=== PATIENT | male | born 1945 | race Caucasian/White ===

== ENCOUNTER → 2016-09-06 | Outpatient (CLI) | payer OTHER ==
[~2016-09-06] MED LIST: ASPIRIN81 M1 PO; BLOOD PRESSURE MED; CEPHALEXIN500 M1 PO; FISH OIL 1,2001 CAP PO; FISH OIL 1,2001 EACH PO; LOSARTAN-HCTZ1 EACH PO; OMEPRAZOLE20 M2 PO; SIMVASTATIN20 MG PO; STOMACH MEDICATION; UROXATRAL10 MG PO; WAL-ZYR10 MG PO
--- NOTE | ~2016-09-06 | CR63 ---
[facility] A Service of [facility] & [facility] RADIOLOGY TEXT RESULTS PATIENT: KARIN VIERA JR LOCATION: [facility] : 43 UNIT #: [id number] AGE: [address]: Bettie Prasad MD SEX: M ORDER DR: [id number] [facility] [address]. [place], [place] [address] [id number] O MR#: [id number] Acc #: [id number] NAME: KARIN VIERA : 1945 SEX: M STUDY DATE/TIME: 09/06/2016 17:57 UNIT: [facility] ROOM: STUDY DESCRIPTION: CR Chest 2 View Attending Physician: Bettie Prasad M.D. Ordering Physician: Bettie Prasad M.D. Primary Care Physician: Bettie Prasad M.D. MEDICAL IMAGING REPORT This report is preliminary unless electronic signature is present EXAM Chest radiograph INDICATION Cough, shortness of breath for 1 week. Patient has a history of emphysema. FINDINGS Comparison is made to a prior exam from August 17, 2013. Heart size is within normal limits. I do think the patient has some patchy infiltrates, particularly throughout the right lung. There does appear to be some mild stable scarring at the left lung base. No pneumothorax is identified. Trace right pleural effusion is not excluded. IMPRESSION Background emphysematous changes with potentially some patchy infiltrates seen particularly throughout the right lung. Pneumonia is not excluded given history. Short-term followup exam to document resolution or stability is suggested. Trace right pleural effusion is also not excluded. Dictated by... Clair Brady M.D. THIS IS AN ELECTRONICALLY VERIFIED REPORT Clair Brady M.D. at 09/07/2016 11:00 AM RIAN/tahir TD: 09/07/2016 08:32 JOB #: [id number] MEDICAL IMAGING REPORT Page 1 of 1 COPY
== END | disposition home or self-care (01) ==
LOC: CRAD 17:44
DX: R05 Cough (principal); J00 Acute nasopharyngitis [common cold]; R91.8 Other nonspecific abnormal finding of lung field
CPT/HCPCS: 71020

== ENCOUNTER → 2016-09-21 | Outpatient (CLI) | payer OTHER ==
--- NOTE | ~2016-09-21 | CR63 ---
[facility] A Service of [facility] & [facility] RADIOLOGY TEXT RESULTS PATIENT: KARIN VIERA JR LOCATION: [facility] : 43 UNIT #: [id number] AGE: [address]: Bettie Prasad MD SEX: M ORDER DR: [id number] [facility] [address] [place], [place] [address] [id number] O MR#: [id number] Acc #: [id number] NAME: KARIN VIERA : 1945 SEX: M STUDY DATE/TIME: 09/21/2016 8:14 UNIT: [facility] ROOM: STUDY DESCRIPTION: CR Chest 2 View Attending Physician: Bettie Prasad M.D. Referring Physician: Bettie Prasad M.D. Ordering Physician: Bettie Prasad M.D. Primary Care Physician: Bettie Prasad M.D. MEDICAL IMAGING REPORT This report is preliminary unless electronic signature is present EXAM Chest PA and lateral, 09/21/2016 HISTORY Cough, chest congestion and shortness breath for 1 month, pneumonia. Benign essential hypertension, emphysema, COPD. Smoking history for 45 years. FINDINGS Two views of the chest were obtained. The lungs are clear. The heart and mediastinum have a normal contour, and the heart size is normal. No pleural effusions are seen. The lungs are hyperinflated, consistent with chronic obstructive pulmonary disease. There is no evidence of active disease. IMPRESSION Chronic obstructive pulmonary disease. No active disease. Dictated by... Jaleel Stearns M.D. THIS IS AN ELECTRONICALLY VERIFIED REPORT Jaleel Stearns M.D. at 09/22/2016 8:01 AM CONNOR/german TD: 09/21/2016 14:34 JOB #: [id number] MEDICAL IMAGING REPORT Page 1 of 1 COPY
== END | disposition home or self-care (01) ==
LOC: CRAD 07:50
DX: J18.9 Pneumonia, unspecified organism (principal); I10 Essential (primary) hypertension; J44.9 Chronic obstructive pulmonary disease, unspecified; Z87.891 Personal history of nicotine dependence
CPT/HCPCS: 71020